=== PATIENT | female | born 1965 | race Caucasian/White ===

== ENCOUNTER → 2023-11-16 | Outpatient (REF) | payer OTHER | LOC: M LAB REF 13:24 | PROVIDERS: ATTEND Student in an Organized Health Care Education/Training Program | DX: S81.802A Unspecified open wound, left lower leg, initial encounter (principal); X58.XXXA Exposure to other specified factors, initial encounter; Y92.9 Unspecified place or not applicable; Y93.9 Activity, unspecified; Y99.9 Unspecified external cause status ==

== ENCOUNTER 2024-02-14 14:43 | Inpatient (IN) | payer OTHER ==
[~2024-02-14] VITALS: Ht 170.2 cm; Wt 110.4 kg
[2024-02-14] MEDS ORDERED: MONT10TA97 PO (15:07)
[2024-02-14] MEDS ORDERED: TRAZ-252 PO (15:07)
[2024-02-14] MEDS ORDERED: EZET10TA21 PO (15:07)
[2024-02-14] MEDS ORDERED: SIMV40TA20 PO (15:07)
[2024-02-14] MEDS ORDERED: PRAM0.252 PO (15:07)
[2024-02-14] MEDS ORDERED: CYCL-707 PO (15:07)
[2024-02-14] MEDS ORDERED: CARV12.5 PO (15:08)
[2024-02-14] MEDS ORDERED: DULO1CAP5 PO (15:10)
[2024-02-14] MEDS ORDERED: ECOT81TA5 PO (15:10)
[2024-02-14] MEDS ORDERED: LOSA25TA13 PO (15:10)
[2024-02-14] MEDS ORDERED: HUMA100I5 INJ (15:11)
[2024-02-14] MEDS ORDERED: FREETES12 (15:11)
[2024-02-14] MEDS ORDERED: LANTINJ4 SUBQ (15:11)
[2024-02-14 15:33] LABS: BASO % 0.2 % (0.0-1.0); HEMATOCRIT 38.1 % (36.0-47.0); HEMOGLOBIN 12.7 g/dl (12.0-15.5); LYMPH % 9.6 % (24.0-44.0); MEAN CORPUSCULAR HEMOGLOBIN 30.3 pg (27.0-33.0); MEAN CORPUSCULAR HGB CONC 33.3 g/dl (32.0-36.5); MEAN CORPUSCULAR VOLUME 90.9 fl (80.0-96.0); MONO # 1.7 10^3/uL (0.0-0.8); MONO % 16.9 % (2.0-8.0); NEUTROPHILS # 7.4 10^3/uL (1.5-8.5); NEUTROPHILS % 72.9 % (36.0-66.0); PLATELET COUNT, AUTOMATED 152 10^3/uL (150-450); RED BLOOD COUNT 4.19 10^6/uL (4.00-5.40); WHITE BLOOD COUNT 10.2 10^3/uL (4.0-10.0)
[2024-02-14 16:03] LABS: ALBUMIN 3.1 G/DL (3.2-5.2); ALKALINE PHOSPHATASE 79 U/L (35-104); ALT/SGPT 23 U/L (7.0-40); AST/SGOT 11 U/L (<34); BILIRUBIN,DIRECT 0.3 MG/DL (<0.4); BILIRUBIN,TOTAL 1.1 MG/DL (0.3-1.2); BLOOD UREA NITROGEN 16 MG/DL (9-23); CALCIUM LEVEL 8.8 MG/DL (8.5-10.1); CARBON DIOXIDE LEVEL 27 MMOL/L (20-31); CHLORIDE LEVEL 97 MMOL/L (98-107); CREATININE FOR GFR 0.84 MG/DL (0.55-1.30); GLOMERULAR FILTRATION RATE > 60.0 (>51); GLUCOSE, FASTING 347 MG/DL (60-100); POTASSIUM SERUM 4.6 MMOL/L (3.5-5.1); SODIUM LEVEL 130 MMOL/L (136-145); TOTAL PROTEIN 7.2 G/DL (5.7-8.2)
[2024-02-14] MEDS ORDERED: IPRATROPIUM 0.02% SOLN 0.5MG 2.5ML NEB INH PRN (17:15)
[2024-02-14] MEDS ORDERED: LEVALBUTEROL 1.25MG 0.5ML CONCENTRATE NEB INH PRN (17:15)
[2024-02-14] MEDS: AZITHROMYCIN 250MG TABLET PO ONE (17:22)
[2024-02-14] MEDS: ACETAMINOPHEN *IV* 1,000 MG in IV 1 EA IV ONE (17:22)
[2024-02-14] MEDS ORDERED: GLUCOSE 4 GM CHEW PO PRN (17:25)
[2024-02-14] MEDS ORDERED: DEXTROSE 50% 50ML SYRINGE IV PRN (17:25)
[2024-02-14] MEDS ORDERED: GLUCAGON INJ 1MG VIAL SC PRN (17:25)
[2024-02-14] MEDS ORDERED: NICOTINE POLACRILEX 2 MG GUM PO PRN (17:25)
[2024-02-14] MEDS ORDERED: TRUL10IN SC (17:57)
[2024-02-14] MEDS ORDERED: XALA0.007 OU (17:57)
[2024-02-14] MEDS ORDERED: OMEP-173 PO (17:57)
[2024-02-14] MEDS: methylPREDNISolone 125MG 2ML VIAL IV ONE (17:58)
[2024-02-14] MEDS: cefTRIAXone SOD 1 GM in DEXTROSE 5% (D5W) ADV/MINI-BAG 50 ML IV ONE ×2 (17:58→18:51)
[2024-02-14] MEDS ORDERED: HOME MED LIST COMPLETE! XX SCH (18:00)
[2024-02-14 18:30] LABS: HEMOGLOBIN A1c 8.6 % (4.0-6.0)
[2024-02-14] MEDS: INSULIN LISPRO (NovoLOG) PER UNIT SC SCH ×2 (18:33→21:00)
[2024-02-14] MEDS: KETOROLAC 30 MG/ML 1ML VIAL IV ONE (19:37)
[2024-02-14] MEDS ORDERED: IPRATROPIUM 0.02% SOLN 0.5MG 2.5ML NEB INH SCH (20:00)
[2024-02-14] MEDS: GLYCOPYRROLATE INJ 0.2 MG/ML 2 ML VIAL NEB SCH (20:16)
[2024-02-14] MEDS: LEVALBUTEROL 1.25MG 0.5ML CONCENTRATE NEB INH SCH (20:17)
[2024-02-14] MEDS: FORMOTEROL FUMARATE 20 MCG/2 ML INHALATION SOLUTION (PERFOROMIST) INH SCH (20:17)
[2024-02-14 21:00] VITALS: BP 142/67; TEMP 96.6; O2SAT 94
[2024-02-14] MEDS: NICOTINE 21MG/24HR 1 EA TRANSDERMAL TD SCH (21:00)
[2024-02-14] MEDS: CARVedilol 12.5 MG TAB PO SCH (21:49)
[2024-02-14] MEDS: DOXYCYCLINE HYCLATE 100MG TABLET PO SCH (21:50)
[2024-02-14] MEDS: EZETIMIBE 10MG TABLET (ZETIA) PO SCH (21:50)
[2024-02-14] MEDS: SIMVASTATIN 40 MG TAB PO SCH (21:50)
[2024-02-14] MEDS: guaiFENesin ER TABLET 600 MG TAB PO SCH (21:50)
[2024-02-14] MEDS: MONTELUKAST 10 MG TAB PO SCH (21:50)
[2024-02-14] MEDS: LEVEMIR (INSULIN DETEMIR) 1 UNITS/0.01ML SC SCH (21:51)
[2024-02-14] MEDS: INSULIN LISPRO (NovoLOG) PER UNIT SC STA (23:23)
[2024-02-15] MEDS ORDERED: methylPREDNISolone 125MG 2ML VIAL IV SCH
[2024-02-15] MEDS: INSULIN LISPRO (NovoLOG) PER UNIT SC STA ×3 (00:51→08:59)
[2024-02-15 01:59] LABS: VENOUS BASE EXCESS -0.2 (-2.0-2.0); VENOUS HCO3 23.6 MMOL/L (23.0-27.0); VENOUS O2 SATURATION 91.4 % (60.0-80.0); VENOUS PARTIAL PRESSURE CO2 36.1 mmHg (38.0-50.0); VENOUS PARTIAL PRESSURE O2 57.7 mmHg (30.0-50.0); VENOUS PH 7.433 UNITS (7.330-7.430); VENOUS STANDARD HCO3 24.1 MMOL/L; VENOUS TOTAL CO2 24.7 MMOL/L (24.0-28.0)
[2024-02-15 02:36] LABS: CALCIUM LEVEL 8.6 MG/DL (8.5-10.1); CREATININE FOR GFR 1.01 MG/DL (0.55-1.30); GLOMERULAR FILTRATION RATE 59.9 (>51); POTASSIUM SERUM 4.4 MMOL/L (3.5-5.1)
[2024-02-15] MEDS: methylPREDNISolone 125MG 2ML VIAL IV SCH (03:00)
[2024-02-15 04:00] VITALS: BP 140/66; TEMP 97.5; O2SAT 92
[2024-02-15 06:03] LABS: BASO % 0.2 % (0.0-1.0); HEMATOCRIT 37.8 % (36.0-47.0); HEMOGLOBIN 12.4 g/dl (12.0-15.5); LYMPH # 0.8 10^3/uL (1.5-5.0); LYMPH % 8.3 % (24.0-44.0); MEAN CORPUSCULAR HEMOGLOBIN 29.4 pg (27.0-33.0); MEAN CORPUSCULAR HGB CONC 32.8 g/dl (32.0-36.5); MEAN CORPUSCULAR VOLUME 89.6 fl (80.0-96.0); MONO # 0.6 10^3/uL (0.0-0.8); MONO % 6.1 % (2.0-8.0); NEUTROPHILS # 7.7 10^3/uL (1.5-8.5); NEUTROPHILS % 85.1 % (36.0-66.0); PLATELET COUNT, AUTOMATED 178 10^3/uL (150-450); RED BLOOD COUNT 4.22 10^6/uL (4.00-5.40); WHITE BLOOD COUNT 9.1 10^3/uL (4.0-10.0)
[2024-02-15 06:31] LABS: CHOLESTEROL RISK RATIO 4.47 (<5); HDL CHOLESTEROL 35.5 MG/DL (>40); LDL CHOLESTEROL 89.1 MG/DL (<100); NON-HDL-C 123.5 MG/DL
[2024-02-15 06:32] LABS: THYROID STIMULATING HORMONE 0.903 uIU/ML (0.55-4.78); THYROXINE (T4) 6.2 UG/DL (4.5-10.9)
[2024-02-15 06:33] LABS: FREE THYROXINE INDEX 2.7 % (1.3-4.8); T UPTAKE 44.1 % (22.5-37.0)
[2024-02-15 06:52] LABS: BLOOD UREA NITROGEN 29 MG/DL (9-23); CALCIUM LEVEL 8.9 MG/DL (8.5-10.1); CARBON DIOXIDE LEVEL 26 MMOL/L (20-31); CHLORIDE LEVEL 95 MMOL/L (98-107); CREATININE FOR GFR 0.95 MG/DL (0.55-1.30); GLOMERULAR FILTRATION RATE > 60.0 (>51); GLUCOSE, FASTING 413 MG/DL (60-100); POTASSIUM SERUM 3.9 MMOL/L (3.5-5.1); SODIUM LEVEL 127 MMOL/L (136-145)
[2024-02-15] MEDS ORDERED: INSULIN LISPRO (NovoLOG) PER UNIT SC ONE (07:00)
[2024-02-15] MEDS: INSULIN LISPRO (NovoLOG) PER UNIT SC ONE (07:33)
[2024-02-15] MEDS ORDERED: ISOVUE-370 76% 100ML VIAL As Ordered ONE (08:49)
[2024-02-15] MEDS: LEVEMIR (INSULIN DETEMIR) 1 UNITS/0.01ML SC ONE (09:00)
[2024-02-15] MEDS: methylPREDNISolone 40MG 1ML VIAL IV SCH (09:00)
[2024-02-15] MEDS: DULoxetine 30MG CAPSULE (CYMBALTA) PO SCH (09:05)
[2024-02-15] MEDS: ASPIRIN 81MG CHEW TABLET PO SCH (09:05)
[2024-02-15] MEDS ORDERED: SODIUM CHLORIDE NASAL 0.65% SPRAY BTL (OCEAN) PRN (09:50)
[2024-02-15] MEDS: HEPARIN SOD (PORCINE) 5000UNITS/ML 1ML VIAL/SYRINGE SQ SCH (10:27)
[2024-02-15] MEDS: LOSARTAN 25 MG TAB PO SCH (10:27)
[2024-02-15 11:38] LABS: SODIUM,RANDOM URINE 17 MMOL/L
[2024-02-15 12:00] VITALS: BP 170/90; TEMP 96.6; O2SAT 93
[2024-02-15] MEDS: SODIUM CHLORIDE NASAL 0.65% SPRAY BTL (OCEAN) SCH (12:28)
[2024-02-15] MEDS: INSULIN LISPRO (NovoLOG) PER UNIT SC SCH (12:29)
[2024-02-15 12:37] LABS: BLOOD UREA NITROGEN 30 MG/DL (9-23); CALCIUM LEVEL 9.3 MG/DL (8.5-10.1); CARBON DIOXIDE LEVEL 24 MMOL/L (20-31); CHLORIDE LEVEL 97 MMOL/L (98-107); CREATININE FOR GFR 0.88 MG/DL (0.55-1.30); GLOMERULAR FILTRATION RATE > 60.0 (>51); GLUCOSE, FASTING 322 MG/DL (60-100); POTASSIUM SERUM 4.2 MMOL/L (3.5-5.1); SODIUM LEVEL 129 MMOL/L (136-145)
[2024-02-15 12:51] LABS: OSMOLALITY URINE 481 MOSM/KG (50-1400)
[2024-02-15] MEDS: CARVedilol 12.5 MG TAB PO ONE (13:05)
[2024-02-15] MEDS: ISOSORBIDE DIN (ISORDIL) 10MG TAB PO SCH (17:41)
[2024-02-15] MEDS: cefTRIAXone SOD 2 GM in DEXTROSE 5% (D5W) ADV/MINI-BAG 50 ML IV SCH (17:41)
[2024-02-15 20:20] VITALS: BP 168/82; TEMP 97.2; O2SAT 92
[2024-02-15] MEDS: CARVedilol 12.5 MG TAB PO SCH (20:36)
[2024-02-15] MEDS: LEVEMIR (INSULIN DETEMIR) 1 UNITS/0.01ML SC SCH (20:38)
[2024-02-15] MEDS: traZODone 50 MG TAB PO ONE (22:36)
[2024-02-15 22:56] VITALS: BP 132/78
[2024-02-16 01:00] VITALS: O2SAT 88
[2024-02-16 02:06] VITALS: O2SAT 91
[2024-02-16 03:50] VITALS: BP 156/62; TEMP 96.6; O2SAT 90
[2024-02-16 06:06] LABS: BASO % 0.1 % (0.0-1.0); HEMATOCRIT 36.4 % (36.0-47.0); HEMOGLOBIN 12.3 g/dl (12.0-15.5); LYMPH # 1.7 10^3/uL (1.5-5.0); MEAN CORPUSCULAR HGB CONC 33.8 g/dl (32.0-36.5); MEAN CORPUSCULAR VOLUME 88.8 fl (80.0-96.0); MONO # 1.2 10^3/uL (0.0-0.8); MONO % 8.3 % (2.0-8.0); NEUTROPHILS # 11.2 10^3/uL (1.5-8.5); PLATELET COUNT, AUTOMATED 269 10^3/uL (150-450); WHITE BLOOD COUNT 14.2 10^3/uL (4.0-10.0)
[2024-02-16 06:32] LABS: CALCIUM LEVEL 9.8 MG/DL (8.5-10.1); CREATININE FOR GFR 1.14 MG/DL (0.55-1.30); GLOMERULAR FILTRATION RATE 52.1 (>51); POTASSIUM SERUM 4.1 MMOL/L (3.5-5.1)
[2024-02-16 06:58] VITALS: O2SAT 94
[2024-02-16 12:00] VITALS: BP 164/84; TEMP 97.7; O2SAT 92
[2024-02-16] MEDS: INSULIN LISPRO (NovoLOG) PER UNIT SC SCH (13:00)
[2024-02-16] MEDS: CARVedilol 12.5 MG TAB PO ONE (16:44)
[2024-02-16] MEDS ORDERED: cloNIDine 0.2 MG TAB PO PRN (17:10)
[2024-02-16 20:30] VITALS: BP 158/80; TEMP 97.3; O2SAT 97
[2024-02-16] MEDS: predniSONE 20 MG TAB PO SCH (21:21)
[2024-02-17] MEDS: KETOROLAC 30 MG/ML 1ML VIAL IV ONE (00:47)
[2024-02-17 04:30] VITALS: BP 152/76; TEMP 97.2; O2SAT 94
[2024-02-17 06:40] LABS: BASO % 0.1 % (0.0-1.0); HEMATOCRIT 39.1 % (36.0-47.0); HEMOGLOBIN 13.1 g/dl (12.0-15.5); LYMPH # 2.5 10^3/uL (1.5-5.0); LYMPH % 15.8 % (24.0-44.0); MEAN CORPUSCULAR HEMOGLOBIN 30.1 pg (27.0-33.0); MEAN CORPUSCULAR HGB CONC 33.5 g/dl (32.0-36.5); MEAN CORPUSCULAR VOLUME 89.9 fl (80.0-96.0); MONO # 1.2 10^3/uL (0.0-0.8); MONO % 7.8 % (2.0-8.0); NEUTROPHILS # 11.7 10^3/uL (1.5-8.5); NEUTROPHILS % 75.5 % (36.0-66.0); PLATELET COUNT, AUTOMATED 314 10^3/uL (150-450); RED BLOOD COUNT 4.35 10^6/uL (4.00-5.40); WHITE BLOOD COUNT 15.5 10^3/uL (4.0-10.0)
[2024-02-17 07:08] LABS: CALCIUM LEVEL 9.9 MG/DL (8.5-10.1); CREATININE FOR GFR 1.02 MG/DL (0.55-1.30); GLOMERULAR FILTRATION RATE 59.3 (>51); POTASSIUM SERUM 4.3 MMOL/L (3.5-5.1)
[2024-02-17] MEDS: LOSARTAN 50MG TABLET PO SCH (08:13)
[2024-02-17] MEDS: CARVedilol 12.5 MG TAB PO SCH (08:13)
[2024-02-17 12:00] VITALS: BP 170/89; TEMP 97; O2SAT 93
[2024-02-17] MEDS: ALPRAZolam 0.5 MG TAB PO ONE (17:27)
[2024-02-17] MEDS: DULoxetine 30MG CAPSULE (CYMBALTA) PO ONE (17:36)
[2024-02-17] MEDS: atenoloL 50 MG TAB PO ONE (17:37)
[2024-02-17] MEDS ORDERED: ISOSORBIDE MON. (IMDUR) 60MG XR TAB PO ONE (19:00)
[2024-02-17 20:58] VITALS: BP 161/82; TEMP 97.3; O2SAT 94
[2024-02-17] MEDS: LEVEMIR (INSULIN DETEMIR) 1 UNITS/0.01ML SC SCH (21:11)
[2024-02-17] MEDS: CYCLOBENZAPRINE 10MG TABLET PO SCH (21:13)
[2024-02-17] MEDS: traZODone 50 MG TAB PO SCH (21:13)
[2024-02-18] MEDS: **hydrALAZINE HCL** 25 MG TAB PO SCH
[2024-02-18 03:49] VITALS: BP 139/67; TEMP 97.5; O2SAT 95
[2024-02-18 05:58] LABS: HEMATOCRIT 38.2 % (36.0-47.0); MEAN CORPUSCULAR HEMOGLOBIN 30.2 pg (27.0-33.0); MEAN CORPUSCULAR VOLUME 88.6 fl (80.0-96.0); PLATELET COUNT, AUTOMATED 333 10^3/uL (150-450); RED BLOOD COUNT 4.31 10^6/uL (4.00-5.40); WHITE BLOOD COUNT 16.1 10^3/uL (4.0-10.0)
[2024-02-18 06:20] LABS: BLOOD UREA NITROGEN 43 MG/DL (9-23); CALCIUM LEVEL 9.4 MG/DL (8.5-10.1); CARBON DIOXIDE LEVEL 29 MMOL/L (20-31); CHLORIDE LEVEL 104 MMOL/L (98-107); CREATININE FOR GFR 0.94 MG/DL (0.55-1.30); GLOMERULAR FILTRATION RATE > 60.0 (>51); GLUCOSE, FASTING 77 MG/DL (60-100); POTASSIUM SERUM 3.9 MMOL/L (3.5-5.1); SODIUM LEVEL 139 MMOL/L (136-145)
[2024-02-18 06:23] LABS: ATYPICAL LYMPH 11 % (0-5); LYMPHOCYTES 38 % (16-44); MONOCYTES 4 % (0-5); NEUTROPHILS 46 % (28-66); PLASMA CELL 1 % (0-0)
[2024-02-18 06:26] LABS: PLATELET CLUMPS SMALL AMT; PLATELET ESTIMATE NORMAL (NORMAL)
[2024-02-18 06:27] LABS: OVALOCYTES 1+
[2024-02-18 06:28] LABS: TEAR DROP CELLS 1+
[2024-02-18] MEDS: DULoxetine 30MG CAPSULE (CYMBALTA) PO SCH (08:24)
[2024-02-18] MEDS: predniSONE 20 MG TAB PO SCH (08:25)
[2024-02-18] MEDS ORDERED: CARVedilol 12.5 MG TAB PO SCH ×2 (09:00→21:00)
[2024-02-18] MEDS: LEVEMIR (INSULIN DETEMIR) 1 UNITS/0.01ML SC SCH (10:31)
[2024-02-18 12:00] VITALS: BP 168/85; TEMP 97.5; O2SAT 95
[2024-02-18] MEDS ORDERED: ALBU8.5H INH (12:04)
[2024-02-18] MEDS ORDERED: PRED10TA2 PO (12:04)
[2024-02-18] MEDS ORDERED: PRED20TA PO (12:04)
[2024-02-18] MEDS ORDERED: DOXY100C3 PO (12:04)
[2024-02-18] MEDS ORDERED: CEFD1CAP9 PO (12:04)
[2024-02-18] MEDS ORDERED: BACI1CAP PO (12:04)
[2024-02-18] MEDS ORDERED: SELF1KIT MC (12:06)
[2024-02-18] MEDS ORDERED: ISOS1TAB36 PO (12:06)
[2024-02-18] MEDS: CARVedilol 12.5 MG TAB PO ONE (19:48)
[2024-02-18] MEDS: ISOSORBIDE MON. (IMDUR) 60MG XR TAB PO ONE (19:48)
[2024-02-18 20:00] VITALS: BP 164/83; TEMP 97.2; O2SAT 94
[2024-02-18] MEDS: CEFDINIR 300 MG CAP (OMNICEF) PO SCH (20:54)
[2024-02-18] MEDS ORDERED: ISOSORBIDE MON. (IMDUR) 60MG XR TAB PO SCH (21:00)
[2024-02-18] MEDS ORDERED: LOSARTAN 25 MG TAB PO SCH (21:00)
[2024-02-19 04:00] VITALS: BP 122/66; TEMP 97.3; O2SAT 96
[2024-02-19] MEDS: LOSARTAN 50MG TABLET PO ONE (05:50)
[2024-02-19 06:09] LABS: BASO % 0.2 % (0.0-1.0); EOS # 0.1 10^3/uL (0.0-0.5); EOS % 0.6 % (0.0-3.0); HEMATOCRIT 34.9 % (36.0-47.0); HEMOGLOBIN 11.7 g/dl (12.0-15.5); LYMPH # 6.7 10^3/uL (1.5-5.0); LYMPH % 42.2 % (24.0-44.0); MEAN CORPUSCULAR HEMOGLOBIN 30.1 pg (27.0-33.0); MEAN CORPUSCULAR HGB CONC 33.5 g/dl (32.0-36.5); MEAN CORPUSCULAR VOLUME 89.7 fl (80.0-96.0); MONO # 1.7 10^3/uL (0.0-0.8); MONO % 10.9 % (2.0-8.0); NEUTROPHILS # 7.1 10^3/uL (1.5-8.5); NEUTROPHILS % 44.3 % (36.0-66.0); PLATELET COUNT, AUTOMATED 293 10^3/uL (150-450); RED BLOOD COUNT 3.89 10^6/uL (4.00-5.40); WHITE BLOOD COUNT 15.9 10^3/uL (4.0-10.0)
[2024-02-19 06:36] LABS: BLOOD UREA NITROGEN 32 MG/DL (9-23); CALCIUM LEVEL 8.8 MG/DL (8.5-10.1); CARBON DIOXIDE LEVEL 30 MMOL/L (20-31); CHLORIDE LEVEL 106 MMOL/L (98-107); CREATININE FOR GFR 0.93 MG/DL (0.55-1.30); GLOMERULAR FILTRATION RATE > 60.0 (>51); GLUCOSE, FASTING 62 MG/DL (60-100); SODIUM LEVEL 142 MMOL/L (136-145)
[2024-02-19 08:55] VITALS: BP 140/73
[2024-02-19] MEDS: CARVedilol 12.5 MG TAB PO SCH (08:55)
[2024-02-19] MEDS ORDERED: LOSARTAN 25 MG TAB PO SCH (09:15)
[2024-02-19 12:00] VITALS: BP 138/78; TEMP 97.3; O2SAT 100
[2024-02-19 14:41] LABS: URINE STREP PNEUMONIAE ANTIGEN NOT DETECTED (NOT DETECT)
[2024-02-19] MEDS ORDERED: CARVedilol 12.5 MG TAB PO SCH (21:00)
[2024-02-19] MEDS ORDERED: ISOSORBIDE MON. (IMDUR) 60MG XR TAB PO SCH (21:00)
== END 2024-02-19 13:34 | disposition home or self-care (01) | DRG 871 ==
LOC: M ED 14:43 → EDBD 14:43 → M ED INP 17:13 → M MSPAV 20:44
PROVIDERS: ADMIT General Practice; ATTEND General Practice
DX: A41.9 Sepsis, unspecified organism (principal); J18.9 Pneumonia, unspecified organism; J96.01 Acute respiratory failure with hypoxia; J44.0 Chronic obstructive pulmonary disease with (acute) lower respiratory infection; E87.1 Hypo-osmolality and hyponatremia; J44.1 Chronic obstructive pulmonary disease with (acute) exacerbation; I50.32 Chronic diastolic (congestive) heart failure; I25.10 Atherosclerotic heart disease of native coronary artery without angina pectoris; I11.0 Hypertensive heart disease with heart failure; E78.5 Hyperlipidemia, unspecified; G25.81 Restless legs syndrome; E11.649 Type 2 diabetes mellitus with hypoglycemia without coma; E11.65 Type 2 diabetes mellitus with hyperglycemia; F41.9 Anxiety disorder, unspecified; I16.0 Hypertensive urgency; G47.00 Insomnia, unspecified; I34.0 Nonrheumatic mitral (valve) insufficiency; F32.A Depression, unspecified; E66.01 Morbid (severe) obesity due to excess calories; Z68.39 Body mass index [BMI] 39.0-39.9, adult; R19.7 Diarrhea, unspecified; Z87.891 Personal history of nicotine dependence; Z95.1 Presence of aortocoronary bypass graft; Z79.82 Long term (current) use of aspirin; Z79.4 Long term (current) use of insulin; Z79.899 Other long term (current) drug therapy; Z88.8 Allergy status to other drugs, medicaments and biological substances

== ENCOUNTER 2025-03-03 14:54 | Emergency (ER) | payer OTHER ==
[~2025-03-03] VITALS: Ht 170.2 cm; Wt 112.3 kg
[~2025-03-03 14:54] MED LIST: ALBU8.5H INH; BACI1CAP PO; CARV12.5 PO; CEFD1CAP9 PO; CYCL-707 PO; DOXY100C3 PO; DULO1CAP5 PO; ECOT81TA5 PO; EZET10TA57 PO; FREETES12; HUMA100I5 INJ; ISOS1TAB36 PO; LANTINJ4 SUBQ; LOSA25TA13 PO; MONT10TA97 PO; OMEP-173 PO; PRAM0.252 PO; PRED10TA2 PO; PRED20TA PO; SELF1KIT MC; SIMV40TA20 PO; TRAZ-252 PO; TRUL10IN SC; XALA0.007 OU
[2025-03-03 19:40] VITALS: TEMP 97.7; O2SAT 97
[2025-03-03 19:43] VITALS: BP 154/84
== END 2025-03-03 19:45 | disposition home or self-care (01) ==
LOC: M ED 14:54
DX: M54.32 Sciatica, left side (principal); I25.119 Atherosclerotic heart disease of native coronary artery with unspecified angina pectoris; I10 Essential (primary) hypertension; E11.9 Type 2 diabetes mellitus without complications; Z88.8 Allergy status to other drugs, medicaments and biological substances; Z79.1 Long term (current) use of non-steroidal anti-inflammatories (NSAID); Z79.51 Long term (current) use of inhaled steroids; Z79.2 Long term (current) use of antibiotics; Z79.4 Long term (current) use of insulin; Z79.899 Other long term (current) drug therapy; Z79.52 Long term (current) use of systemic steroids
CPT/HCPCS: 96372; 99284; J1100

== ENCOUNTER → 2025-03-31 | Outpatient (CLI) | payer OTHER | LOC: M RAD 08:29 | PROVIDERS: ATTEND Family Medicine | DX: M54.32 Sciatica, left side (principal); M51.26 Other intervertebral disc displacement, lumbar region; M47.896 Other spondylosis, lumbar region ==